=== PATIENT | male | born 1980 | race African-American/Black ===

== ENCOUNTER 2016-12-01 | Inpatient (IN) | payer OTHER ==
[~2016-12-01] VITALS: Ht 177.8 cm; Wt 68.0 kg
[~2016-12-01] MED LIST: DARVOCET-N 1001 TA1 PO; KEFLEX500 MG PO; MEDROL4 MG/DOSE- PO; NORCO 5/325 TAB1 TAB PO; ORUDIS75 M1 PO; PERCOCET 51 UDTAB 5/ PO; VICODIN 5/500 T1 TAB PO
--- NOTE | ~2016-12-01 | PN ---
Unit #: [id number] #: [id number] Patient: HEIDE ADDISON [id number] [facility] [address] [place] [address] [id number] I MR#: [id number] NAME: HEIDE ADDISON ROOM: [facility] Age: 36 Sex: M Admission Date: 12/01/2016 : 1980 Attending Physician: Nico Reynolds M.D. Admitting Physician: Nico Reynolds M.D. Primary Care Physician: Primary Care Physician Yana HOROWITZ PROGRESS NOTES DATE 12/04/2016 DISCUSSION The patient says that he is sleeping better and feels a bit calmer with initiation of Seroquel and Depakote. We will transfer the patient to the [address] [place] [address] unit as he is doing quite well and seems to be progressing towards discharge nicely. Dictated by... Nico Reynolds M.D. CB/nimisha TD: 12/05/2016 01:10 JOB #: [id number] [facility] PROGRESS NOTES Page 1 of 1 X Nico Reynolds MD PROGRESS NOTE
--- NOTE | ~2016-12-01 | HP ---
Unit #: [id number] #: [id number] Patient: BRIAN ADDISON [id number] [place] [address] [id number] MR#: [id number] NAME: BRIAN ADDISON ROOM: [facility] Age: 36 Sex: M Admission Date: 12/01/2016 : 1980 Attending Physician: Nico Reynolds M.D. Admitting Physician: Nico Reynolds M.D. Primary Care Physician: Primary Care Physician No HISTORY AND PHYSICAL History and physical completed on 12/01/2016. HISTORY OF PRESENT ILLNESS Brian is a 36-year-old male, admitted on 12/01/2016 for psychosis. He reports visual hallucinations. PAST MEDICAL HISTORY Chronic arm pain and history of asthma. PAST SURGICAL HISTORY Left forearm fracture with a surgical repair and he currently has a nicol placed. SOCIAL HISTORY He smokes one pack of cigarettes daily, history of alcohol use, and history of marijuana use. He is currently single and living with his sister. FAMILY HISTORY Noncontributory. REVIEW OF SYSTEMS CONSTITUTIONAL: No fever or chills. HEENT: Denies any sore throat, ear pain or runny nose. CARDIOVASCULAR: Denies chest pain, irregular heart rhythm or palpitations. CHEST: Denies shortness of breath or cough. No hemoptysis. GASTROINTESTINAL: Denies nausea, vomiting, diarrhea or chronic constipation. ENDOCRINE: Denies history of increased thirst or urination. No recent significant weight loss or gain. GENITOURINARY: Denies dysuria, frequency, or hematuria. SKIN: Denies any rashes. HEMATOLOGIC: Denies history of increased bleeding or bruising. MUSCULOSKELETAL: Denies any hot, swollen joints. No generalized muscle pain. NEUROLOGIC: Denies problems with vision or speech. No frequent, severe headaches. No numbness, tingling or weakness in any extremities. Denies loss of bladder or bowel control. CURRENT MEDICATIONS None. ALLERGIES Unit #: [id number] #: [id number] Patient: BRIAN ADDISON Benadryl and zinc acetate. PHYSICAL EXAMINATION GENERAL: Alert, oriented, no acute distress. VITAL SIGNS: Blood pressure 100/63, heart rate 70, respirations 18, and temperature 97.0. SKIN: Warm and dry without rash or lesion. HEENT: Normocephalic. TMs not viewed. Oral and nasal passages clear. Conjunctivae clear. PERRLA. EOMs intact. NECK: Supple without lymphadenopathy or thyromegaly. HEART: Regular rate and rhythm without murmur. LUNGS: Clear. ABDOMEN: Soft, nontender. : Not done. EXTREMITIES: No evidence of cyanosis, clubbing or edema. Moves all without focal deficit. NEUROLOGICAL: Grossly within normal limits. Cranial Nerves: II: Visual kovacs are intact. III, IV AND : Extraocular movements are intact. Pupils are equal, round and reactive to light. V: Facial sensation is grossly normal. VII: Facial movements and expression are normal. VIII: Auditory acuity grossly intact. IX, X: Uvula is midline. Phonation is normal. XI: Patient shrugs shoulders and turns head normally. XII: Tongue protrudes in the midline. Sensory and Motor Function: Sensory and motor sensation is grossly normal. Motor: moves all extremities well. Coordination: Gait is normal. Deep Tendon Reflexes: Intact. IMPRESSION 1. Psychiatric admission. 2. Chronic arm pain. 3. History of asthma. RECOMMENDATIONS Psychiatric, per psychiatrist. MEDICAL No contraindications to participating in facility's activities. MEDICAL PROGNOSIS Good. MEDICAL CONDITION Stable. Dictated by... Dell Green TD: 12/02/2016 05:26 JOB #: [id number] Unit #: [id number] #: [id number] Patient: BRIAN ADDISON HISTORY AND PHYSICAL Page 1 of 1 X PAXTON CRESPO APRN X HISTORY AND PHYSICAL
--- NOTE | ~2016-12-01 | PA ---
Unit #: [id number] #: [id number] Patient: HEIDE ADDISON [id number] [facility] [address] [place] [address] [id number] I MR#: [id number] NAME: HEIDE ADDISON ROOM: [facility] Age: 36 Sex: M Admission Date: 12/01/2016 : 1980 Date of Assessment: 12/01/2016 Attending Physician: Nico Reynolds M.D. Admitting Physician: Nico Reynolds M.D. Primary Care Physician: Primary Care Physician No PSYCHIATRIC ASSESSMENT IDENTIFYING INFORMATION The patient is a 36-year-old male admitted to the [address] [place] [address] unit with increased auditory hallucinations and suicidal ideation. INFORMANT(S) Patient and chart. RELIABILITY Good. CHIEF COMPLAINT None given. HISTORY OF PRESENT ILLNESS The patient is a 36-year-old male last admitted to this facility and cared for by Dr. Kit Mauricio in 2004. At that time, he did well with a combination of Depakote and Seroquel. The patient had been lost to followup and has been off medications for some time. He reports a return of sad mood, suicidal ideation and auditory hallucinations. He reports that the most prominent recent stressor in his life is conflict with the mother of his out of wedlock child. The patient is currently reporting positive suicidal ideation as well as auditory hallucinations but is pleasant and cooperative during interview. He reports that his drinking has increased recently but he does not feel as though this has been "a problem." He denies abuse of other psychoactive substances. He lives with his sister and is disabled by his psychiatric illness. PAST PSYCHIATRIC HISTORY As above. FAMILY HISTORY Noncontributory. SOCIAL HISTORY The patient lives with his sister. He is disabled by his psychiatric illness. There is no reported use of street drugs. The patient is a smoker and does use alcohol. MEDICAL HISTORY Noncontributory. MEDICATION HISTORY None. Unit #: [id number] #: [id number] Patient: HEIDE ADDISON ALLERGIES None. MENTAL STATUS EXAM At this time, reveals the patient to be a well-developed, well-nourished slightly disheveled male appearing his stated age. He is in no apparent physical distress at the time of examination. He is awake, alert, oriented in all spheres. His mood is mildly dysphoric. His affect constricted. Speech is generally relevant and coherent. There are no gross deficits in memory or cognition noted. Intelligence is judged to be in the average range based on fund of knowledge. The patient is cooperative throughout the interview. He is currently endorsing positive suicidal ideation. He denies homicidal ideation. He denies any psychotic symptoms. He reports positive auditory hallucinations. His judgement and insight appear to be somewhat impaired. ASSETS AND LIABILITIES Patient's assets, motivation for change. Liabilities, lack of resources. ADMITTING DIAGNOSES 1. Schizoaffective disorder. 2. Possible alcohol use disorder. PSYCHIATRIC PLAN/TREATMENT GOALS The patient remains hospitalized for safety and stabilization. The patient had done well when cared for by Dr. Mauricio with a combination of Depakote and Seroquel. We will therefore restart that combination of medications with upward titration of Seroquel to take place over the next several days. The patient will participate in appropriate horowitz and milieu activities. ESTIMATED LENGTH OF STAY Five to seven day. Dictated by... Nico Reynolds M.D. JEREMY/maria guadalupe TD: 12/01/2016 15:18 JOB #: [id number] PSYCHIATRIC ASSESSMENT Page 1 of 1 X Nico Reynolds MD X PSYCHIATRIC ASSESSMENT
--- NOTE | ~2016-12-01 | PN ---
Unit #: [id number] #: [id number] Patient: HEIDE ADDISON [id number] [facility] [address] [place] [address] [id number] I MR#: [id number] NAME: HEIDE ADDISON ROOM: [facility] Age: 36 Sex: M Admission Date: 12/01/2016 : 1980 Attending Physician: Nico Reynolds M.D. Admitting Physician: Nico Reynolds M.D. Primary Care Physician: Primary Care Physician No NANICE PROGRESS NOTES DATE 12/05/2016 DISCUSSION The patient is in brighter spirits today and appears considerably improved from admission with initiation of medication. Should he sustain progress discharge should take place as early as tomorrow. Dictated by... Nico Reynolds M.D. CB/nimisha TD: 12/05/2016 22:24 JOB #: [id number] [facility] PROGRESS NOTES Page 1 of 1 X Nico Reynolds MD X PROGRESS NOTE
--- NOTE | ~2016-12-01 | DS ---
Unit #: [id number] #: [id number] Patient: HEIED ADDISON [id number] [facility] [address] [place] [address] [id number] MR#: [id number] NAME: HEIDE ADDISON ROOM: [facility] Age: 36 Sex: M Admission Date: 12/01/2016 : 1980 Discharge Date: 12/06/2016 Attending Physician: Nico Reynolds M.D. Primary Care Physician: Primary Care Physician No DISCHARGE SUMMARY REASON FOR ADMISSION The patient is a 36-year-old male, admitted with recurrence of auditory and visual hallucinations related to a period of medication noncompliance. HOSPITAL COURSE The patient was admitted to the [address] [place] [address] unit initially and restarted on Depakote and Seroquel medications for which he has history of positive response. He did well with reinitiation of these medications. He was transferred to the [address] [place] [address] unit in order to make room for bed on the [facility] unit, but did report some issues of alcohol abuse on which he worked while on the [address] [place] [address] unit. By the time of discharge, the patient's condition had improved considerably. He was bright euthymic and denied any auditory hallucinations. Discharge was ordered. FINAL DIAGNOSES Schizoaffective disorder; alcohol use disorder. DISPOSITION ON DISCHARGE The patient is discharged on the following medications: Depakote ER 1000 mg at bedtime for mood stabilization and Seroquel 100 mg at bedtime for psychosis. DISCHARGE INSTRUCTIONS No dietary or physical restrictions were placed upon the at the time of discharge. FOLLOWUP Followup will take place through the auspices of community mental health resources. PROGNOSIS The patient's prognosis is considered good. Dictated by... Nico Reynolds M.D. CB/moi TD: 12/06/2016 14:45 JOB #: [id number] Unit #: [id number] #: [id number] Patient: HEIDE ADDISON DISCHARGE SUMMARY Page 1 of 1 X Nico Reynolds MD X DISCHARGE SUMMARY
--- NOTE | ~2016-12-01 | PN ---
Unit #: [id number] #: [id number] Patient: HEIDE ADDISON [id number] [facility] [address] [place] [address] [id number] I MR#: [id number] NAME: HEIDE ADDISON ROOM: [facility] Age: 36 Sex: M Admission Date: 12/01/2016 : 1980 Attending Physician: Nico Reynolds M.D. Admitting Physician: Nico Reynolds M.D. Primary Care Physician: Primary Care Physician Yana HOROWITZ PROGRESS NOTES DATE 12/03/2016 DISCUSSION The patient did comply with his prescribed Seroquel and Depakote last evening. He had mistakenly not complied with medications in the evening but states that he will comply with them in the future. He continues to endorse psychotic and paranoid thinking. Dictated by... Nico Reynolds M.D. CB/jonathon TD: 12/03/2016 13:13 JOB #: [id number] [facility] PROGRESS NOTES Page 1 of 1 X Nico Reynolds MD PROGRESS NOTE
--- NOTE | ~2016-12-01 | PN ---
Unit #: [id number] #: [id number] Patient: HEIDE ADDISON [id number] [facility] [address] [place] [address] [id number] I MR#: [id number] NAME: HEIDE ADDISON ROOM: [facility] Age: 36 Sex: M Admission Date: 12/01/2016 : 1980 Attending Physician: Nico Reynolds M.D. Admitting Physician: Nico Reynolds M.D. Primary Care Physician: Primary Care Physician Yana HOROWITZ PROGRESS NOTES DATE 12/02/2016 DISCUSSION The patient has been started on his Seroquel and Depakote though he does not recall taking these medications. The chart does indicate that he did receive them last evening. He continues to endorse positive auditory hallucinations. Dictated by... Nico Reynolds M.D. CB/maria guadalupe TD: 12/02/2016 18:40 JOB #: [id number] [facility] PROGRESS NOTES Page 1 of 1 X Nico Reynolds MD PROGRESS NOTE
[2016-12-01 09:41] LABS: URINE APPEARANCE CLEAR; URINE BILIRUBIN NEG (NEG); URINE BLOOD NEG (NEG); URINE COLOR YELLOW; URINE GLUCOSE NEG (NEG); URINE KETONE NEG (NEG); URINE LEUKOCYTE ESTERASE NEG (NEG); URINE NITRATE NEG (NEG); URINE PROTEIN NEG (NEG); URINE SPECIFIC GRAVITY 1.008 (1.003-1.035); URINE UROBILINOGEN 0.2 MG/DL (NEG)
[2016-12-01 09:43] LABS: BASOPHIL# 0.1 X10e3 (0-0.3); BASOPHIL% 1.4 % (0-2.5); EOSINOPHIL# 0.4 X10e3 (0-0.7); EOSINOPHIL% 5.6 % (0.0-7.0); HEMATOCRIT 43.1 % (38.0-50.0); HEMOGLOBIN 14.2 gm/dL (13.0-16.0); LYMPHOCYTE% 38.8 % (17.0-45.0); MEAN CELL VOLUME 92.9 FL (83-96); MEAN CORPUSCULAR HEMOGLOBIN 30.7 PG (28-34); MEAN PLATELET VOLUME 7.6 FL (6.5-11.5); MONOCYTE# 0.6 X10e3 (0-1.0); NEUTROPHIL# 3.5 X10e3 (1.5-7.1); NEUTROPHIL% 46.2 % (40-75); PLATELET COUNT 292 X10e3 (140-420); RED BLOOD COUNT 4.64 X10e (3.90-5.60); RED CELL DISTRIBUTION WIDTH 14.8 % (11.0-15.5); WHITE BLOOD COUNT 7.6 X10e3 (4.0-10.5)
[2016-12-01 09:55] LABS: DIFF IND NO
[2016-12-01 10:00] LABS: AMPHETAMINE NEG (NEG); BARBITURATES NEG (NEG); BENZODIAZEPINES NEG (NEG); COCAINE NEG (NEG); MARIJUANA POS (NEG); OPIATES NEG (NEG); TRICYCLIC ANTIDEPRESSANTS NEG (NEG); U METHADONE NEG (NEG)
[2016-12-01 10:08] LABS: ALBUMIN SERUM 3.9 g/dL (3.5-5.0); BILIRUBIN,TOTAL 0.4 mg/dL (0.2-2.0); BUN/CREATININE RATIO 7.77; CALCIUM SERUM 9.1 mg/dL (8.4-10.2); CREATININE SERUM 0.9 mg/dL (0.6-1.4); POTASSIUM 4.3 mmol/L (3.5-5.1); PROTEIN TOTAL SERUM 6.4 g/dL (6.0-8.3)
== END 2016-12-06 15:00 | DRG 885 ==
LOC: P1S 05:04 → POF 12-04 10:29 → P1S 12-04 10:31 → P2S 12-04 15:07
PROVIDERS: Specialist
DX: F25.9 Schizoaffective disorder, unspecified (principal); R45.851 Suicidal ideations; F10.10 Alcohol abuse, uncomplicated; F17.210 Nicotine dependence, cigarettes, uncomplicated
CPT/HCPCS: 80053; 80307; 81003; 85025